=== PATIENT | female | born 1955 | race Caucasian/White ===

== ENCOUNTER 2025-03-23 01:42 | Emergency (ER) | payer MEDICARE, OTHER ==
[~2025-03-23] VITALS: Ht 167.6 cm; Wt 68.0 kg
[2025-03-23 01:54] VITALS: BP 152/112; TEMP 98.6
[2025-03-23] MEDS ORDERED: FAMOTIDINE/PF INJ 20 MG/2 ML VIAL IV ONE (02:07)
[2025-03-23] MEDS ORDERED: LORAZEPAM INJ 2 MG/ML VIAL ONE (02:08)
[2025-03-23] MEDS: IV NS 0.9% 1,000 ML BAG IV ONE (02:16)
[2025-03-23] MEDS: FAMOTIDINE/PF INJ 20 MG/2 ML VIAL IV ONE (02:16)
[2025-03-23] MEDS: LORAZEPAM INJ 2 MG/ML VIAL IV ONE (02:16)
[2025-03-23] MEDS ORDERED: PRED50TA PO (02:42)
[2025-03-23 03:15] VITALS: O2SAT 96
== END 2025-03-23 03:16 | disposition home or self-care (01) ==
LOC: ER 01:44
DX: T78.40XA Allergy, unspecified, initial encounter (principal); L50.9 Urticaria, unspecified; Z79.52 Long term (current) use of systemic steroids; Y92.89 Other specified places as the place of occurrence of the external cause
CPT/HCPCS: 99284; 96374; 96375; 96361; J2919; J2060; J1200; J1308; J7030